=== PATIENT | female | born 1930 | race Caucasian/White ===

== ENCOUNTER → 2017-12-10 | Outpatient (CLI) | payer MEDICARE, MEDICAID ==
--- NOTE | 2017-12-11 06:44 | WOMENS IMAGING REPORT ---
EXAM DESCRIPTION: 3D SCREENING MAMMO BILAT COMPLETED DATE/TIME: 12/10/2017 1:57 pm REASON FOR STUDY: ROUTINE SCREENING; Z12.31 Z12.31 ENCNTR SCREEN MAMMOGRAM FOR MALIGNANT NEOPLASM O F GABRIELA COMPARISON: 03/14/2012 and 05/26/2009. TECHNIQUE: Standard craniocaudal and mediolateral oblique views of each breast recorded using digita l acquisition and breast tomosynthesis. LIMITATIONS: None. FINDINGS: Findings present which are benign by mammographic criteria. No suspicious masses, calcifi cations or architectural distortion. Pertinent benign findings: Stable calcifications, oval nodule in the right breast. Read with the assistance of CAD. .[facility] - R2 Cenova Version 1.3 .[facility] Imaging - R2 Cenova Version 1.3 .[facility] Imaging - R2 Cenova Version 2.4 .[facility] [place] Cenova Version 2.4 .[facility] - R2 Microbiology Lab Analyst Version 9.2 Benign mammographic findings may include one or more of the following: Smooth masses, popcorn/rim/co arse calcifications, asymmetries, post-procedure changes, and lesions with long-standing stability. IMPRESSION: BENIGN MAMMOGRAPHIC FINDINGS. BIRADS 2 BREAST DENSITY: b. There are scattered areas of fibroglandular density. BIRAD: 2 BENIGN FINDING(S) RECOMMENDATION: RECOMMENDATION: ROUTINE SCREENING COMMENT: The patient has been notified of the results by letter per SA requirements. Additional no tification policies are in place for contacting patient with suspicious or incomplete findings. Quality ID #[id number]: The [employer] recommends an annual screening mammogram for women aged 40 years or over. This facility utilizes a reminder system to ensure that all patients receive reminder letters, and/or direct phone calls for appointments. This includes reminders for routine scr eening mammograms, diagnostic mammograms, or other Breast Imaging Interventions when appropriate. Th is patient will be placed in the appropriate reminder system. The [employer] (ACR) has developed recommendations for screening MRI of the breast s in certain patient populations, to be used in conjunction with mammography. Breast MRI surveillanc e may be appropriate for women with more than 20% lifetime risk of developing breast cancer as deter mined by genetic testing, significant family history of the disease, or history of mantle radiation f or Hodgkins Disease. ACR Practice Guidelines 2008. DBT Technology DBT is a type of tomographic mammography. With conventional mammography, overlapping breast tissue ma y make lesions difficult to detect, even with good compression. DBT uses an x-ray tube that rotates a round the breast, taking images at different angles. These images are then combined to create thin sl ices of the breast that the radiologist can view as a 3D reconstruction. The FX Bridge unit can perform full-field digital mammograms (2D imaging); or DBT (3D imaging); or both, in a combination mode that quickly performs both the mammogram and the tomosynthesis scan while the breast is still compressed. PQRS 6045F: Fluoroscopic imaging is not utilized for breast tomosynthesis. TECHNICAL DOCUMENTATION: FINDING NUMBER: (1) ASSESSMENT: (1) JOB ID: [id number] [employer]- All Rights Reserved
== END ==
LOC: WI 13:45
PROVIDERS: ATTEND Obstetrics & Gynecology Gynecology
DX: Z12.31 Encounter for screening mammogram for malignant neoplasm of breast (principal)
CPT/HCPCS: 77063; 77067

== ENCOUNTER 2018-05-26 13:39 | Inpatient (IN) | payer MEDICARE, MEDICAID ==
[2018-05-26] MEDS ORDERED: OXYCODONE-ACETAMINOPHEN 5-325 MG TABLET PO ONE (14:03)
--- NOTE | 2018-05-26 14:07 | ER Document Report ---
ED Fall - General Chief Complaint: Fall Stated Complaint: FALL Time Seen by Provider: 05/26/18 14:03 Mode of Arrival: Ambulatory Information source: Patient Notes: Chief complaint: Left leg pain History of complain:( obtained from----patient) 87 years old female while walking said felt dizzy fell on the left knee and since then having pain over the medial side of the left knee and lower leg. She did not pass out. There is no loss of consciousness. Denies any head injury. He denies any headache neck pain neck stiffness. Denies any injury to upper limbs. Denies any injury to the thoracolumbar region. Denies any pain over the hipS, denies any pain over the ankles. Onset: As above Duration: Just prior to arrival Severity: Moderate Quality: Sharp Context: 4 Exacerbating factor and relieving factors: Any movement of the left leg REVIEW OF SYSTEMS: CONSTITUTIONAL : Denies fever, chills, or sweats. Denies recent illness. EENT: Denies eye, ear, throat, or mouth pain or symptoms. Denies nasal or sinus congestion or discharge. Denies throat, tongue, or mouth swelling or difficulty swallowing. CARDIOVASCULAR: Denies chest pain. Denies palpitations or racing or irregular heart beat. Denies ankle edema. RESPIRATORY: Denies cough, cold, or chest congestion. Denies shortness of breath, difficulty breathing, or wheezing. GASTROINTESTINAL: Denies distention. Denies nausea, vomiting, or diarrhea. Denies blood in vomitus, stools, or per rectum. Denies black, tarry stools. Denies constipation. GENITOURINARY: Denies difficulty urinating, painful urination, burning, frequency, blood in urine, or discharge. FEMALE GENITOURINARY: Denies vaginal bleeding, heavy or abnormal periods, irregular periods. Denies vaginal discharge or odor. MUSCULOSKELETAL: SKIN: Denies rash, lesions or sores. HEMATOLOGIC : Denies easy bruising or bleeding. LYMPHATIC: Denies swollen, enlarged glands. NEUROLOGICAL: Denies confusion or altered mental status. Denies passing out or loss of consciousness. Denies dizziness or lightheadedness. Denies headache. Denies weakness or paralysis or loss of use of either side. Denies problems with gait or speech. Denies sensory loss, numbness, or tingling. Denies seizures. PSYCHIATRIC: Denies anxiety or stress. Denies depression, suicidal ideation, or homicidal ideation. ALL OTHER SYSTEMS REVIEWED AND NEGATIVE. PHYSICAL EXAMINATION: GENERAL: Well-appearing, well-nourished and in no acute distress. HEAD: Atraumatic, normocephalic. EYES: Pupils equal round and reactive to light, extraocular movements intact, conjunctiva are normal. ENT: Nares patent, oropharynx clear without exudates. Moist mucous membranes. NECK: Normal range of motion, supple without lymphadenopathy LUNGS: Breath sounds clear to auscultation bilaterally and equal. No wheezes rales or rhonchi. HEART: Regular rate and rhythm without murmurs ABDOMEN: Soft, nontender, nondistended abdomen. No guarding, no rebound. No masses appreciated. Examination of genitals-deferred Musculoskeletal: Tenderness diffusely over the entire left leg up to the knee was noted. No swelling no erythema noted. The entire leg is shortened externally rotated. Tenderness over the left hip noted. NEUROLOGICAL: Cranial nerves grossly intact. Normal speech, normal gait. Normal sensory, motor exams PSYCH: Normal mood, normal affect. SKIN: Warm, Dry, normal turgor, no rashes or lesions noted. Dictation was performed using [employer] voice recognition software TRAVEL OUTSIDE OF THE [place] IN LAST 30 DAYS: No - HPI Notes: Dictated - Related data Allergies/Adverse Reactions: No Known Allergies Allergy (Verified 05/26/18 15:27) Past Medical History - General Information source: Patient - Social History Smoking Status: Former Smoker Chew tobacco use (# tins/day): No Frequency of alcohol use: None Drug Abuse: None Family History: Reviewed & Not Pertinent Patient has suicidal ideation: No Patient has homicidal ideation: No - Past Medical History Cardiac Medical History: Reports: Hx Hypercholesterolemia, Hx Hypertension Pulmonary Medical History: Denies: Hx Tuberculosis Renal/ Medical History: Denies: Hx Peritoneal Dialysis Review of Systems - Review of Systems Notes: Dictated Physical Exam - Vital signs Vitals: Temp Pulse Resp BP Pulse Ox 98.1 F 70 20 147/59 H 95 05/26/18 13:54 05/26/18 13:54 05/26/18 13:54 05/26/18 13:54 05/26/18 13:54 - Notes Notes: Dictated Course - Re-evaluation Re-evalutation: 05/26/18 15:39 Patient was admitted to the medical service after discussing with the orthopedic surgeon director of online education. - Vital Signs Vital signs: Temp Pulse Resp BP Pulse Ox 98.1 F 70 20 147/59 H 95 05/26/18 13:54 05/26/18 13:54 05/26/18 13:54 05/26/18 13:54 05/26/18 13:54 - Laboratory Result Diagrams: 05/26/18 14:32 05/26/18 14:32 Laboratory results interpreted by me: 05/26/18 05/26/18 14:32 14:32 MCH 26.4 L RDW 14.4 H BUN 24 H Est GFR ( Amer) 53 L Est GFR (Non-Af Amer) 44 L Glucose 266 H - Diagnostic Test Radiology reviewed: Image reviewed, Reports reviewed - Left knee reported by radiologist as no fractures Radiology results interpreted by me: 05/26/18 15:38 Left hip [id number] fracture - EKG Interpretation by Me EKG shows normal: Sinus rhythm - Sinus rhythm at the rate of 63 bpm normal axis no acute ST elevation ST depression T-wave inversion noted. Discharge - Discharge Clinical Impression: Dizziness Fracture, intertrochanteric, left femur Qualifiers: Encounter type: initial encounter Fracture type: closed Fracture alignment: nondisplaced Qualified Code(s): S72.145A - Nondisplaced intertrochanteric fracture of left femur, initial encounter for closed fracture Condition: Poor Disposition: ADMITTED INPATIENT Admitting Provider: Hospitalist Referrals: JONATHAN CARDOZA MD [Primary Care Provider] - Follow up as needed
--- NOTE | 2018-05-26 14:31 | RADIOLOGY REPORT (SQ) ---
EXAM DESCRIPTION: KNEE LEFT 4 VIEW COMPLETED DATE/TIME: 05/26/2018 2:22 pm REASON FOR STUDY: fall COMPARISON: None. NUMBER OF VIEWS: Five views. TECHNIQUE: AP, lateral, both oblique, and sunrise patella radiographic images acquired of the left k nee. LIMITATIONS: None. FINDINGS: MINERALIZATION: Osteopenia. BONES: No acute fracture or dislocation. No worrisome bone lesions. Osteophytes particularly of the lateral compartment. JOINT: No effusion. SOFT TISSUES: No soft tissue swelling. No radio-opaque foreign body. OTHER: No other significant finding. IMPRESSION: No acute fracture. TECHNICAL DOCUMENTATION: JOB ID: [id number] [employer]- All Rights Reserved Reading location - IP/workstation name: [email or web address]
[2018-05-26 14:40] LABS: ABSOLUTE BASOPHILS # (AUTO) 0.1 10^3/uL (0.0-0.2); ABSOLUTE EOSINOPHILS # (AUTO) 0.3 10^3/uL (0.0-0.6); ABSOLUTE LYMPHOCYTES (AUTO) 1.4 10^3/uL (0.5-4.7); ABSOLUTE MONOCYTES (AUTO) 0.5 10^3/uL (0.1-1.4); ABSOLUTE NEUT (AUTO) 5.4 10^3/uL (1.7-8.2); EOSINOPHILS % (AUTO) 3.6 % (0-6); HEMATOCRIT 37.1 % (36.0-47.0); HEMOGLOBIN 12.1 g/dL (12.0-15.5); LYMPHOCYTES % (AUTO) 18.7 % (13-45); MEAN CORPUSCULAR HEMOGLOBIN 26.4 pg (27.0-33.4); MEAN CORPUSCULAR HGB CONC 32.6 g/dL (32.0-36.0); MEAN CORPUSCULAR VOLUME 81 fl (80-97); MONOCYTES % (AUTO) 6.6 % (3-13); PLATELET COUNT 255 10^3/uL (150-450); RED BLOOD COUNT 4.59 10^6/uL (3.72-5.28); RED CELL DISTRIBUTION WIDTH 14.4 % (11.5-14.0); SEGMENTED NEUTROPHILS % (AUTO) 70.1 % (42-78); TOTAL CELLS COUNTED % (AUTO) 100 %; WHITE BLOOD COUNT 7.6 10^3/uL (4.0-10.5)
[2018-05-26 15:01] LABS: ALANINE AMINOTRANSFERASE 18 U/L (9-52); ALBUMIN 3.7 g/dL (3.5-5.0); ALKALINE PHOSPHATASE 77 U/L (38-126); ANION GAP 11 (5-19); ASPARTATE AMINO TRANSFERASE 21 U/L (14-36); BILIRUBIN,DIRECT 0.2 mg/dL (0.0-0.4); BILIRUBIN,TOTAL 0.3 mg/dL (0.2-1.3); BLOOD UREA NITROGEN 24 mg/dL (7-20); CALCIUM 8.7 mg/dL (8.4-10.2); CARBON DIOXIDE 25 mmol/L (22-30); CHLORIDE 104 mmol/L (98-107); GLUCOSE 266 mg/dL (75-110); POTASSIUM 4.6 mmol/L (3.6-5.0); SODIUM 140.2 mmol/L (137-145); TOTAL PROTEIN 7.6 g/dL (6.3-8.2)
[2018-05-26 15:36] LABS: APPEARANCE,URINE SLIGHTLY-CLOUDY; BILIRUBIN,URINE NEGATIVE (NEGATIVE); COLOR,URINE YELLOW; GLUCOSE, URINE NEGATIVE (NEGATIVE); KETONES,URINE NEGATIVE (NEGATIVE); LEUKOCYTE ESTERASE,URINE NEGATIVE (NEGATIVE); NITRITE,URINE NEGATIVE (NEGATIVE); PROTEIN,URINE NEGATIVE (NEGATIVE); URINE SPECIFIC GRAVITY 1.024
[2018-05-26] MEDS ORDERED: MORPHINE SULFATE 10 MG/ML INJ IV ONE (15:41)
[2018-05-26] MEDS ORDERED: ONDANSETRON 4 MG TAB.RAPDIS PO ONE (15:41)
--- NOTE | 2018-05-26 15:53 | RADIOLOGY REPORT (SQ) ---
EXAM DESCRIPTION: CHEST SINGLE VIEW COMPLETED DATE/TIME: 05/26/2018 3:45 pm REASON FOR STUDY: Preop COMPARISON: None. EXAM PARAMETERS: NUMBER OF VIEWS: One view. TECHNIQUE: Single frontal radiographic view of the chest acquired. RADIATION DOSE: NA LIMITATIONS: None. FINDINGS: LUNGS AND PLEURA: No opacities, masses or pneumothorax. No pleural effusion. MEDIASTINUM AND HILAR STRUCTURES: No masses. Contour normal. HEART AND VASCULAR STRUCTURES: Heart normal in size. Normal vasculature. BONES: No acute findings. HARDWARE: None in the chest. OTHER: No other significant finding. IMPRESSION: NO ACUTE RADIOGRAPHIC FINDING IN THE CHEST. TECHNICAL DOCUMENTATION: JOB ID: [id number] [employer]- All Rights Reserved Reading location - IP/workstation name: [email or web address]
--- NOTE | 2018-05-26 15:55 | RADIOLOGY REPORT (SQ) ---
EXAM DESCRIPTION: HIP LEFT AP/LATERAL COMPLETED DATE/TIME: 05/26/2018 3:45 pm REASON FOR STUDY: fall,injury COMPARISON: None. NUMBER OF VIEWS: Two views. TECHNIQUE: AP pelvis and additional frog-leg view of the left hip. LIMITATIONS: None. FINDINGS: MINERALIZATION: Osteopenia. LEFT HIP: Comminuted intertrochanteric fracture with superior migration of the femoral shaft. RIGHT HIP: No fracture or dislocation. No worrisome bone lesions. PUBIS AND ISCHIUM: Old inferior pubic ramus fracture. PELVIS: No fracture. SACRUM: No fracture or dislocation. No worrisome bone lesions. LOWER LUMBAR SPINE: No fracture or dislocation. No worrisome bone lesions. No significant disc disea se. SOFT TISSUES: No findings. OTHER: No other significant finding. IMPRESSION: Acute comminuted intertrochanteric fracture of the left femur. TECHNICAL DOCUMENTATION: JOB ID: [id number] [employer]- All Rights Reserved Reading location - IP/workstation name: [email or web address]
[2018-05-26] MEDS: NORMAL SALINE 1000 ML 1,000 ML IV PRN (16:12)
[2018-05-26] MEDS ORDERED: ONDANSETRON HCL INJ/PF 4 MG/2 ML SDV IV PRN (16:20)
--- NOTE | 2018-05-26 16:33 | PDOC H&P ---
History of Present Illness Admission Date/PCP: 05/26/18 15:57 JONATHAN CARDOZA MD History of Present Illness: DANIELLE VELA is a 87 year old female who is a resident of [facility] suffered a mechanical fall today and landed on her left knee. She was claiming to have pain in her upper thigh. She was brought to the emergency department and was found to have a left femur fracture. She has some degree of cognitive impairment making her somewhat unreliable as a historian, so a lot of the story is obtained from the medical record. Past Medical History Cardiac Medical History: Reports: Hyperlipidema, Hypertension Pulmonary Medical History: Denies: Tuberculosis Social History Information Source: [facility] Records Lives with: Other - Long-term care facility Smoking Status: Former Smoker Frequency of Alcohol Use: None Hx Recreational Drug Use: No Hx Prescription Drug Abuse: No Family History Family History: Reviewed & Not Pertinent Parental Family History Reviewed: Yes - Unable to obtain Children Family History Reviewed: Yes - Unable to obtain Sibling(s) Family History Reviewed.: Yes - Unable to obtain Medication/Allergy Home Medications: Acetaminophen [Mapap] 500 mg PO Q4HP PRN 05/26/18 Aspirin [Adult Low Dose Aspirin EC] 81 mg PO QAM 05/26/18 Cholecalciferol (Vitamin D3) [Vitamin D3 400 Unit Tablet] 400 unit PO QAM Guaifenesin [Tussin Mucus-Chest Congestion] 10 ml PO Q6HP PRN 05/26/18 Loperamide HCl [Loperamide] 2 mg PO PRN PRN 05/26/18 Magnesium Hydroxide [Milk of Magnesia 30 ml Udcup] 30 ml PO HSP PRN 05/26/18 Memantine HCl [Namenda 10 mg Tablet] 10 mg PO QAM 05/26/18 Metoprolol Succinate [Toprol Xl 50 mg Tab.sr] 50 mg PO QAM 05/26/18 Mintox Susp 30 ml PO PRN PRN 05/26/18 Pravastatin Sodium [Pravachol] 40 mg PO QHS 05/26/18 Allergies/Adverse Reactions: No Known Allergies Allergy (Verified 05/26/18 15:27) Review of Systems ROS unobtainable: Due to mental status Physical Exam Vital Signs: Temp Pulse Resp BP Pulse Ox 98.1 F 70 20 191/64 H 96 05/26/18 13:54 07/29/18 13:54 05/26/18 16:03 05/26/18 16:03 05/26/18 16:03 General appearance: PRESENT: no acute distress, cooperative, disheveled, obese Head exam: PRESENT: atraumatic, normocephalic Eye exam: PRESENT: conjunctiva pink, EOMI, PERRLA. ABSENT: scleral icterus Ear exam: PRESENT: normal external ear exam Mouth exam: PRESENT: moist, neck supple Teeth exam: PRESENT: poor dentation Throat exam: ABSENT: post pharyngeal erythema, tonsillar erythema, tonsillar exudate, tonsillogmegaly Neck exam: PRESENT: full ROM. ABSENT: carotid bruit, JVD, lymphadenopathy, tenderness Respiratory exam: PRESENT: clear to auscultation michael, unlabored. ABSENT: accessory muscle use, rales, rhonchi, tachypnea, wheezes Cardiovascular exam: PRESENT: RRR, +S1, +S2. ABSENT: diastolic murmur, systolic murmur Pulses: PRESENT: normal radial pulses, normal dorsalis pedis pul Vascular exam: PRESENT: normal capillary refill GI/Abdominal exam: PRESENT: normal bowel sounds, soft. ABSENT: distended, guarding, rebound, tenderness Extremities exam: ABSENT: calf tenderness, clubbing, pedal edema Musculoskeletal exam: PRESENT: deformity - Left leg is externally rotated, tenderness - Left hip is tender to palpation Neurological exam: PRESENT: alert, awake, oriented to person, CN II-XII grossly intact. ABSENT: oriented to place, oriented to time Skin exam: PRESENT: dry, warm Results Laboratory Results: Reviewed Impressions: Knee X-Ray 05/26/18 13:56 IMPRESSION: No acute fracture. Hip X-Ray 05/26/18 15:02 IMPRESSION: Acute comminuted intertrochanteric fracture of the left femur. Chest X-Ray 05/26/18 15:26 IMPRESSION: NO ACUTE RADIOGRAPHIC FINDING IN THE CHEST. Assessment & Plan - Diagnosis (1) Fracture, intertrochanteric, left femur Qualifiers: Encounter type: initial encounter Fracture type: closed Fracture alignment: nondisplaced Qualified Code(s): S72.145A - Nondisplaced intertrochanteric fracture of left femur, initial encounter for closed fracture Is this a current diagnosis for this admission?: Yes Plan: Pain control. Orthopedics consult, she will likely need surgery for repair. Plan for postoperative DVT prophylaxis and physical therapy. - Time Time Spent: 50 to 70 Minutes
--- NOTE | 2018-05-26 18:30 | EKG REPORT ---
SEVERITY:- NORMAL ECG - SINUS RHYTHM : Confirmed by: Sarahi Ochoa MD 26-May-2018 18:30:02
[2018-05-26] MEDS: ATORVASTATIN CALCIUM 10 MG TABLET PO SCH (22:32)
[2018-05-26] MEDS: OXYCODONE-ACETAMINOPHEN 5-325 MG TABLET PO PRN (22:32)
[2018-05-27 05:36] LABS: HEMATOCRIT 31.7 % (36.0-47.0); HEMOGLOBIN 10.6 g/dL (12.0-15.5); MEAN CORPUSCULAR HEMOGLOBIN 27.2 pg (27.0-33.4); MEAN CORPUSCULAR HGB CONC 33.5 g/dL (32.0-36.0); MEAN CORPUSCULAR VOLUME 81 fl (80-97); PLATELET COUNT 204 10^3/uL (150-450); RED CELL DISTRIBUTION WIDTH 14.2 % (11.5-14.0); WHITE BLOOD COUNT 9.2 10^3/uL (4.0-10.5)
[2018-05-27] MEDS: OXYCODONE-ACETAMINOPHEN 5-325 MG TABLET PO PRN (05:49)
[2018-05-27] MEDS: NORMAL SALINE 1000 ML 1,000 ML IV PRN (05:50)
[2018-05-27 05:54] LABS: ANION GAP 10 (5-19); BLOOD UREA NITROGEN 26 mg/dL (7-20); CALCIUM 8.7 mg/dL (8.4-10.2); CARBON DIOXIDE 24 mmol/L (22-30); CHLORIDE 106 mmol/L (98-107); GLUCOSE 111 mg/dL (75-110); SODIUM 140.3 mmol/L (137-145)
[2018-05-27] MEDS ORDERED: RINGERS SOLUTION,LACTATED 1,000 ML IV PRN ×2 (06:42→13:38)
[2018-05-27] MEDS ORDERED: CEFAZOLIN 2 GM/D5W RTU 2 GM/50 ML RTUPB IV PRN (06:42)
--- NOTE | 2018-05-27 06:51 | PDOC CONSULTATION ---
Consultation Consult Date: 05/27/18 Consult reason:: Left hip pain History of Present Illness Admission Date/PCP: 05/26/18 15:57 JONATHAN CARDOZA MD History of Present Illness: DANIELLE VELA is a 87 year old female The patient is an 87-year-old white female resident of [facility] with a minimal past medical history who presents status post a fall with inability to weight-bear. She was brought to the emergency room where a left intratrochanteric femur fracture was identified. Patient is admitted to the hospital service and orthopedics consulted for fracture management. Past Medical History Cardiac Medical History: Reports: Hyperlipidema, Hypertension Pulmonary Medical History: Denies: Tuberculosis Psychiatric Medical History: Denies: Depression Past Surgical History Past Surgical History: Reports: None Social History Information Source: Patient, [facility] Records Lives with: Other - Long-term care facility Smoking Status: Former Smoker Frequency of Alcohol Use: None Hx Recreational Drug Use: No Drugs: None Hx Prescription Drug Abuse: No Family History Family History: Reviewed & Not Pertinent Parental Family History Reviewed: No Children Family History Reviewed: No Sibling(s) Family History Reviewed.: No Medication/Allergy Home Medications: Acetaminophen [Mapap] 500 mg PO Q4HP PRN 05/26/18 Aspirin [Adult Low Dose Aspirin EC] 81 mg PO QAM 05/26/18 Cholecalciferol (Vitamin D3) [Vitamin D3 400 Unit Tablet] 400 unit PO QAM Guaifenesin [Tussin Mucus-Chest Congestion] 10 ml PO Q6HP PRN 05/26/18 Loperamide HCl [Loperamide] 2 mg PO PRN PRN 05/26/18 Magnesium Hydroxide [Milk of Magnesia 30 ml Udcup] 30 ml PO HSP PRN 05/26/18 Memantine HCl [Namenda 10 mg Tablet] 10 mg PO QAM 05/26/18 Metoprolol Succinate [Toprol Xl 50 mg Tab.sr] 50 mg PO QAM 05/26/18 Mintox Susp 30 ml PO PRN PRN 05/26/18 Pravastatin Sodium [Pravachol] 40 mg PO QHS 05/26/18 Allergies/Adverse Reactions: No Known Allergies Allergy (Verified 05/26/18 15:27) Review of Systems ROS unobtainable: Due to mental status All systems: as per PMH Physical Exam Vital Signs: Temp Pulse Resp BP Pulse Ox 36.5 C 72 12 112/83 94 05/26/18 23:11 05/26/18 23:11 05/26/18 23:11 05/26/18 23:11 05/26/18 23:11 Intake & Output 05/25/18 05/26/18 05/27/18 06:59 06:59 06:59 Intake Total 1236 Output Total 300 Balance 936 Weight 81.1 kg Physical Exam: Patient is an alert elderly white female sitting up in a hospital bed. She is complaining about left thigh pain. Left lower extremities elevated on pillows. General appearance: PRESENT: mild distress Head exam: PRESENT: normocephalic Respiratory exam: PRESENT: unlabored Cardiovascular exam: PRESENT: RRR Pulses: PRESENT: +1 pedal pulses bilateral Vascular exam: PRESENT: normal capillary refill GI/Abdominal exam: PRESENT: soft Rectal exam: PRESENT: deferred Extremities exam: PRESENT: other - Left lower extremity supported on pillows. Pain associated with motion. Leg length discrepancy present. Rotational deformity. Neurological exam: PRESENT: alert Skin exam: PRESENT: dry, intact, warm. ABSENT: cyanosis, rash Results Laboratory Results: 05/27/18 04:45 05/27/18 04:45 05/27/18 05/27/18 04:45 04:45 WBC 9.2 RBC 3.90 Hgb 10.6 L Hct 31.7 L MCV 81 MCH 27.2 MCHC 33.5 RDW 14.2 H Plt Count 204 Sodium 140.3 Potassium 5.0 Chloride 106 Carbon Dioxide 24 Anion Gap 10 BUN 26 H Creatinine 1.06 Est GFR ( Amer) 59 L Est GFR (Non-Af Amer) 49 L Glucose 111 H Calcium 8.7 Impressions: Knee X-Ray 05/26/18 13:56 IMPRESSION: No acute fracture. Hip X-Ray 05/26/18 15:02 IMPRESSION: Acute comminuted intertrochanteric fracture of the left femur. Chest X-Ray 05/26/18 15:26 IMPRESSION: NO ACUTE RADIOGRAPHIC FINDING IN THE CHEST. Status: Imported from PACS Assessment & Plan - Diagnosis (1) Fracture, intertrochanteric, left femur Qualifiers: Encounter type: initial encounter Fracture type: closed Fracture alignment: nondisplaced Qualified Code(s): S72.145A - Nondisplaced intertrochanteric fracture of left femur, initial encounter for closed fracture Is this a current diagnosis for this admission?: Yes Plan: 87-year-old white female largely household ambulator status post a fall now with a left intratrochanteric femur fracture. Patient be best served with an open reduction internal fixation of the fracture. This is been placed on the OR schedule today pending medical clearance, or availability, and obtaining appropriate consent. Anticipate the procedure will last approximately 30 minutes with 100 cc of blood loss. Patient be weightbearing as tolerated immediately postop. - Time Time Spent: 50 to 70 Minutes Anticipated discharge: SNF Within: Other
[2018-05-27] MEDS ORDERED: PROPOFOL INJ 200 MG/20 ML VIAL IV ONE (11:05)
[2018-05-27] MEDS ORDERED: FENTANYL CITRATE INJ/PF 100 MCG/2 ML AMPUL ONE (11:05)
[2018-05-27] MEDS ORDERED: ACETAMINOPHEN 0 MG/0 ML RTUPB IV ONE (11:05)
[2018-05-27] MEDS ORDERED: BUPIVACAINE HCL/DEX-WATER/PF 15 MG/2 ML AMPULE ONE (11:07)
[2018-05-27] MEDS ORDERED: CEFAZOLIN INJ 1 GM VIAL ONE (11:28)
[2018-05-27] MEDS ORDERED: MORPHINE SULFATE 10 MG/ML INJ IV PRN (12:24)
[2018-05-27] MEDS ORDERED: PROMETHAZINE HCL INJ 25 MG/1 ML VIAL IV PRN ×2 (12:24)
[2018-05-27] MEDS ORDERED: OXYCODONE-ACETAMINOPHEN 5-325 MG TABLET PO PRN ×2 (12:24)
[2018-05-27] MEDS ORDERED: DIPHENHYDRAMINE HCL 50 MG/ML VIAL IV PRN (12:24)
[2018-05-27] MEDS ORDERED: FENTANYL CITRATE INJ/PF 100 MCG/2 ML AMPUL IV PRN ×3 (12:24)
[2018-05-27] MEDS ORDERED: MEPERIDINE HCL/PF INJ 25 MG/1 ML DISP.SYRIN IV PRN (12:24)
--- NOTE | 2018-05-27 12:27 | Operative Report ---
Operative Report DATE OF SURGERY: 05/27/18 PREOPERATIVE DIAGNOSIS: Left intratrochanteric femur fracture OPERATION: Open reduction internal fixation left intratrochanteric femur fracture SURGEON: SHANTI RINCON ANESTHESIA: GA ESTIMATED BLOOD LOSS: 100 PROCEDURE: With the patient supine on the fracture table left lower extremities manipulated and fluoroscopic guidance to affected near anatomic reduction. Subsequently the lower extremity hindquarter prepped and draped in sterile fashion. The pin is placed percutaneously down through the greater trochanter into the proximal metadiaphysis of the femur. A combined reamers used to fashion a cortical opening. These are removed and a ball-tipped guide rods placed down the femur. Femoral depth is measured to be 360 mm. Subsequently a Radhika gamma 3 femoral nail 360 mm x 11 mm x 125 is advanced over the ball- tipped guide trinh for an appropriate depth for proximal interlock. A 100 mm proximal interlock is placed. A 55 mm distal interlock is placed. The wounds irrigated. Wounds are closed using interrupted Vicryl followed by jake. Sterile compressive dressings applied and the patient's return to PACU in satisfactory condition.
[2018-05-27] MEDS ORDERED: EPHEDRINE SULFATE INJ 50 MG/1 ML AMPULE ONE (12:44)
--- NOTE | 2018-05-27 13:47 | RADIOLOGY REPORT (SQ) ---
EXAM DESCRIPTION: NO CHG FLUORO; HIP IN OPERATING RM COMPLETED DATE/TIME: 05/27/2018 1:21 pm REASON FOR STUDY: ORIF/ IM NAILING LEFT HIP IN OR COMPARISON: 05/26/2018. FLUOROSCOPY TIME: 0.7 minutes. 4 images saved to PACS. TECHNIQUE: Intra-operative images acquired during surgical procedure to evaluate progress. NUMBER OF IMAGES: 4 images. LIMITATIONS: None. FINDINGS: Surgical fixation of the left hip fracture with placement of hardware. IMPRESSION: IMAGE(S) OBTAINED DURING PROCEDURE. COMMENT: Quality ID [id number]: Final reports for procedures using fluoroscopy that document radiation exp osure indices, or exposure time and number of fluorographic images (if radiation exposure indices are not available) Please consult full operative report of the attending physician for description of the procedure. TECHNICAL DOCUMENTATION: JOB ID: [id number] [employer]- All Rights Reserved Reading location - IP/workstation name: [email or web address]
--- NOTE | 2018-05-27 13:47 | RADIOLOGY REPORT (SQ) ---
EXAM DESCRIPTION: NO CHG FLUORO; HIP IN OPERATING RM COMPLETED DATE/TIME: 05/27/2018 1:21 pm REASON FOR STUDY: ORIF/ IM NAILING LEFT HIP IN OR COMPARISON: 05/26/2018. FLUOROSCOPY TIME: 0.7 minutes. 4 images saved to PACS. TECHNIQUE: Intra-operative images acquired during surgical procedure to evaluate progress. NUMBER OF IMAGES: 4 images. LIMITATIONS: None. FINDINGS: Surgical fixation of the left hip fracture with placement of hardware. IMPRESSION: IMAGE(S) OBTAINED DURING PROCEDURE. COMMENT: Quality ID [id number]: Final reports for procedures using fluoroscopy that document radiation exp osure indices, or exposure time and number of fluorographic images (if radiation exposure indices are not available) Please consult full operative report of the attending physician for description of the procedure. TECHNICAL DOCUMENTATION: JOB ID: [id number] [employer]- All Rights Reserved Reading location - IP/workstation name: [email or web address]
--- NOTE | 2018-05-27 15:17 | PDOC PROGRESS REPORT ---
Subjective Progress Note for:: 05/27/18 Subjective:: No adverse events overnight. No new complaints. Vital signs have remained stable. Her pain has been well controlled as long as she is at rest. She is n.p.o. today awaiting her procedure. Reason For Visit: LEFT COMMINUTED INTERTROCHANTERIC FEMUR FRACTURE Physical Exam Vital Signs: Temp Pulse Resp BP Pulse Ox 97.9 F 75 16 119/50 L 97 05/27/18 13:21 05/27/18 13:21 05/27/18 13:21 05/27/18 13:21 05/27/18 13:21 Intake & Output 05/26/18 05/27/18 05/28/18 06:59 06:59 06:59 Intake Total 1236 700 Output Total 300 300 Balance 936 400 Weight 81.1 kg General appearance: PRESENT: no acute distress, cooperative, disheveled, obese Respiratory exam: PRESENT: clear to auscultation michael, unlabored. ABSENT: accessory muscle use, rales, rhonchi, tachypnea, wheezes Cardiovascular exam: PRESENT: RRR, +S1, +S2. ABSENT: diastolic murmur, systolic murmur Pulses: PRESENT: normal radial pulses, normal dorsalis pedis pul Vascular exam: PRESENT: normal capillary refill GI/Abdominal exam: PRESENT: normal bowel sounds, soft. ABSENT: distended, guarding, rebound, tenderness Extremities exam: ABSENT: calf tenderness, clubbing, pedal edema Musculoskeletal exam: PRESENT: deformity - Left leg is externally rotated, tenderness - Left hip is tender to palpation Neurological exam: PRESENT: alert, awake, oriented to person. ABSENT: oriented to place, oriented to time Skin exam: PRESENT: dry, warm Results Laboratory Results: 05/27/18 04:45 05/27/18 04:45 05/27/18 05/27/18 04:45 04:45 WBC 9.2 RBC 3.90 Hgb 10.6 L Hct 31.7 L MCV 81 MCH 27.2 MCHC 33.5 RDW 14.2 H Plt Count 204 Sodium 140.3 Potassium 5.0 Chloride 106 Carbon Dioxide 24 Anion Gap 10 BUN 26 H Creatinine 1.06 Est GFR ( Amer) 59 L Est GFR (Non-Af Amer) 49 L Glucose 111 H Calcium 8.7 Impressions: Knee X-Ray 05/26/18 13:56 IMPRESSION: No acute fracture. Chest X-Ray 05/26/18 15:26 IMPRESSION: NO ACUTE RADIOGRAPHIC FINDING IN THE CHEST. Fluoroscopy 05/27/18 00:00 IMPRESSION: IMAGE(S) OBTAINED DURING PROCEDURE. Hip X-Ray 05/27/18 00:00 IMPRESSION: IMAGE(S) OBTAINED DURING PROCEDURE. Assessment & Plan - Diagnosis (1) Fracture, intertrochanteric, left femur Qualifiers: Encounter type: initial encounter Fracture type: closed Fracture alignment: nondisplaced Qualified Code(s): S72.145A - Nondisplaced intertrochanteric fracture of left femur, initial encounter for closed fracture Is this a current diagnosis for this admission?: Yes Plan: Pain control. She is on the schedule for the OR today. Plan for postoperative DVT prophylaxis and physical therapy. - Time Time Spent with patient: 15-24 minutes
[2018-05-27] MEDS: MORPHINE SULFATE 10 MG/ML INJ IV PRN (15:45)
[2018-05-27] MEDS: ASPIRIN 81 MG TABLET, ENT COATED PO SCH (17:52)
[2018-05-27] MEDS: METOPROLOL SUCCINATE 50 MG TAB.SR.24H PO SCH (17:53)
[2018-05-27] MEDS: MEMANTINE HCL 10 MG TABLET PO SCH (17:53)
[2018-05-27] MEDS ORDERED: TRAMADOL HCL 50 MG TABLET PO PRN (18:00)
[2018-05-27] MEDS: CEFAZOLIN 2 GM/D5W RTU 2 GM/50 ML RTUPB IV SCH (18:30)
[2018-05-27] MEDS: ATORVASTATIN CALCIUM 10 MG TABLET PO SCH (23:00)
[2018-05-28] MEDS: CEFAZOLIN 2 GM/D5W RTU 2 GM/50 ML RTUPB IV SCH (03:25)
[2018-05-28] MEDS: OXYCODONE-ACETAMINOPHEN 5-325 MG TABLET PO PRN ×2 (03:25→13:19)
--- NOTE | 2018-05-28 06:28 | PDOC PROGRESS REPORT ---
Subjective Progress Note for:: 05/28/18 Reason For Visit: LEFT COMMINUTED INTERTROCHANTERIC FEMUR FRACTURE Postop day 1 status post open reduction internal fixation of left proximal femur fracture. Patient denies any significant pain Physical Exam Vital Signs: Temp Pulse Resp BP Pulse Ox 36.6 C 87 18 151/54 H 98 05/28/18 03:32 05/28/18 03:32 05/27/18 19:27 05/28/18 03:32 05/28/18 03:32 Intake & Output 05/26/18 05/27/18 05/28/18 06:59 06:59 06:59 Intake Total 1236 2000 Output Total 300 1225 Balance 936 775 Weight 81.1 kg 81.9 kg General appearance: PRESENT: no acute distress Head exam: PRESENT: normocephalic Respiratory exam: PRESENT: unlabored Cardiovascular exam: PRESENT: RRR Pulses: PRESENT: +1 pedal pulses bilateral Vascular exam: PRESENT: normal capillary refill Extremities exam: PRESENT: other - Left hip dressings clean dry and intact. Leg lengths are equal. Distal neurovascular examination is intact. Skin exam: PRESENT: dry, intact, warm. ABSENT: cyanosis, rash Results Laboratory Results: 05/27/18 04:45 05/27/18 04:45 Impressions: Knee X-Ray 05/26/18 13:56 IMPRESSION: No acute fracture. Chest X-Ray 05/26/18 15:26 IMPRESSION: NO ACUTE RADIOGRAPHIC FINDING IN THE CHEST. Fluoroscopy 05/27/18 00:00 IMPRESSION: IMAGE(S) OBTAINED DURING PROCEDURE. Hip X-Ray 05/27/18 00:00 IMPRESSION: IMAGE(S) OBTAINED DURING PROCEDURE. Status: Imported from PACS Assessment & Plan - Diagnosis (1) Fracture, intertrochanteric, left femur Qualifiers: Encounter type: initial encounter Fracture type: closed Fracture alignment: nondisplaced Qualified Code(s): S72.145A - Nondisplaced intertrochanteric fracture of left femur, initial encounter for closed fracture Is this a current diagnosis for this admission?: Yes Plan: Status post ORIF of left hip fracture. Plan for physical therapy and weightbearing as tolerated basis. Anticipate the need for shelter facility placement.
[2018-05-28 06:39] LABS: HEMATOCRIT 27.7 % (36.0-47.0); HEMOGLOBIN 9.2 g/dL (12.0-15.5); MEAN CORPUSCULAR HEMOGLOBIN 27.1 pg (27.0-33.4); MEAN CORPUSCULAR HGB CONC 33.4 g/dL (32.0-36.0); MEAN CORPUSCULAR VOLUME 81 fl (80-97); PLATELET COUNT 147 10^3/uL (150-450); RED BLOOD COUNT 3.41 10^6/uL (3.72-5.28); WHITE BLOOD COUNT 10.9 10^3/uL (4.0-10.5)
[2018-05-28 06:57] LABS: ANION GAP 9 (5-19); BLOOD UREA NITROGEN 19 mg/dL (7-20); CALCIUM 8.2 mg/dL (8.4-10.2); CARBON DIOXIDE 24 mmol/L (22-30); CHLORIDE 105 mmol/L (98-107); GLUCOSE 138 mg/dL (75-110); POTASSIUM 4.7 mmol/L (3.6-5.0)
[2018-05-28] MEDS: ASPIRIN 81 MG TABLET, ENT COATED PO SCH (08:39)
[2018-05-28] MEDS: METOPROLOL SUCCINATE 50 MG TAB.SR.24H PO SCH (08:39)
[2018-05-28] MEDS: MEMANTINE HCL 10 MG TABLET PO SCH (08:39)
--- NOTE | 2018-05-28 16:38 | PDOC PROGRESS REPORT ---
Subjective Progress Note for:: 05/28/18 Subjective:: Ms. Sun was admitted for left femoral fracture. She is status post ORIF postop day 1. No acute event overnight. Postop pain is well controlled. Reason For Visit: LEFT COMMINUTED INTERTROCHANTERIC FEMUR FRACTURE Physical Exam Vital Signs: Temp Pulse Resp BP Pulse Ox 98.5 F 77 18 136/51 H 99 05/28/18 15:16 05/28/18 15:16 05/28/18 15:16 05/28/18 15:16 05/28/18 15:16 Intake & Output 05/27/18 05/28/18 05/29/18 06:59 06:59 06:59 Intake Total 1236 2000 1405 Output Total 300 1225 450 Balance 936 775 955 Weight 178 lb 12.718 oz 180 lb 8.937 oz General appearance: PRESENT: no acute distress, well-developed, well-nourished Head exam: PRESENT: atraumatic, normocephalic Neck exam: ABSENT: carotid bruit, JVD, lymphadenopathy, thyromegaly Respiratory exam: PRESENT: clear to auscultation michael. ABSENT: rales, rhonchi, wheezes Cardiovascular exam: PRESENT: RRR. ABSENT: diastolic murmur, rubs, systolic murmur Pulses: PRESENT: normal dorsalis pedis pul GI/Abdominal exam: PRESENT: normal bowel sounds, soft. ABSENT: distended, guarding, mass, organolmegaly, rebound, tenderness Rectal exam: PRESENT: deferred Extremities exam: PRESENT: other - No tenderness on site of surgery Neurological exam: PRESENT: alert, oriented to person, oriented to place, oriented to time Results Laboratory Results: 05/28/18 05:24 05/28/18 05:24 05/28/18 05/28/18 05:24 05:24 WBC 10.9 H RBC 3.41 L Hgb 9.2 L Hct 27.7 L MCV 81 MCH 27.1 MCHC 33.4 RDW 14.0 Plt Count 147 L Sodium 138.0 Potassium 4.7 Chloride 105 Carbon Dioxide 24 Anion Gap 9 BUN 19 Creatinine 1.02 Est GFR ( Amer) > 60 Est GFR (Non-Af Amer) 51 L Glucose 138 H Calcium 8.2 L Impressions: Knee X-Ray 05/26/18 13:56 IMPRESSION: No acute fracture. Chest X-Ray 05/26/18 15:26 IMPRESSION: NO ACUTE RADIOGRAPHIC FINDING IN THE CHEST. Fluoroscopy 05/27/18 00:00 IMPRESSION: IMAGE(S) OBTAINED DURING PROCEDURE. Hip X-Ray 05/27/18 00:00 IMPRESSION: IMAGE(S) OBTAINED DURING PROCEDURE. Assessment & Plan - Diagnosis (1) Fracture, intertrochanteric, left femur Qualifiers: Encounter type: initial encounter Fracture type: closed Is this a current diagnosis for this admission?: Yes Plan: Patient is status post ORIF, POD 1. Continue current pain regimen. Will follow -up on further ortho recommendations. Patient has been evaluated by PT recommendation for SNF versus rehab placement. - Time Time Spent with patient: 15-24 minutes
[2018-05-29] MEDS: ATORVASTATIN CALCIUM 10 MG TABLET PO SCH ×2 (00:54→21:00)
[2018-05-29] MEDS: OXYCODONE-ACETAMINOPHEN 5-325 MG TABLET PO PRN ×2 (00:54→15:08)
[2018-05-29 05:28] LABS: HEMATOCRIT 25.4 % (36.0-47.0); HEMOGLOBIN 8.5 g/dL (12.0-15.5); MEAN CORPUSCULAR HEMOGLOBIN 26.6 pg (27.0-33.4); MEAN CORPUSCULAR HGB CONC 33.4 g/dL (32.0-36.0); MEAN CORPUSCULAR VOLUME 80 fl (80-97); PLATELET COUNT 157 10^3/uL (150-450); WHITE BLOOD COUNT 10.4 10^3/uL (4.0-10.5)
[2018-05-29 05:49] LABS: ANION GAP 13 (5-19); BLOOD UREA NITROGEN 20 mg/dL (7-20); CALCIUM 8.4 mg/dL (8.4-10.2); CARBON DIOXIDE 22 mmol/L (22-30); CHLORIDE 104 mmol/L (98-107); GLUCOSE 124 mg/dL (75-110); POTASSIUM 4.7 mmol/L (3.6-5.0); SODIUM 138.5 mmol/L (137-145)
[2018-05-29] MEDS: METOPROLOL SUCCINATE 50 MG TAB.SR.24H PO SCH (08:07)
[2018-05-29] MEDS: MEMANTINE HCL 10 MG TABLET PO SCH (08:07)
[2018-05-29] MEDS: ASPIRIN 81 MG TABLET, ENT COATED PO SCH (08:07)
--- NOTE | 2018-05-29 15:17 | PDOC PROGRESS REPORT ---
Subjective Progress Note for:: 05/29/18 Subjective:: Ms. Sun was admitted for left femoral fracture. She is status post ORIF postop day 2. No acute event overnight. Postop pain is well controlled. Reason For Visit: LEFT COMMINUTED INTERTROCHANTERIC FEMUR FRACTURE Physical Exam Vital Signs: Temp Pulse Resp BP Pulse Ox 97.7 F 86 18 123/52 L 91 L 05/29/18 11:00 05/29/18 11:00 05/29/18 11:00 05/29/18 11:00 05/29/18 11:00 Intake & Output 05/28/18 05/29/18 05/30/18 06:59 06:59 06:59 Intake Total 2000 1405 Output Total 1225 450 Balance 775 955 Weight 180 lb 8.937 oz 180 lb 15.992 oz General appearance: PRESENT: no acute distress, well-developed, well-nourished Head exam: PRESENT: atraumatic, normocephalic Neck exam: ABSENT: carotid bruit, JVD, lymphadenopathy, thyromegaly Respiratory exam: PRESENT: clear to auscultation michael. ABSENT: rales, rhonchi, wheezes Cardiovascular exam: PRESENT: RRR. ABSENT: diastolic murmur, rubs, systolic murmur Pulses: PRESENT: normal dorsalis pedis pul Vascular exam: PRESENT: normal capillary refill GI/Abdominal exam: PRESENT: normal bowel sounds, soft. ABSENT: distended, guarding, mass, organolmegaly, rebound, tenderness Rectal exam: PRESENT: deferred Extremities exam: PRESENT: full ROM. ABSENT: calf tenderness, clubbing, pedal edema Musculoskeletal exam: PRESENT: normal inspection, tenderness, other - Surgical site on the left hip looks clean with no signs of infection. Neurological exam: PRESENT: alert, awake, oriented to person, oriented to place , oriented to time, oriented to situation, CN II-XII grossly intact. ABSENT: motor sensory deficit Psychiatric exam: PRESENT: appropriate affect, normal mood. ABSENT: homicidal ideation, suicidal ideation Results Laboratory Results: 05/29/18 04:54 05/29/18 04:54 05/29/18 05/29/18 04:54 04:54 WBC 10.4 RBC 3.20 L Hgb 8.5 L Hct 25.4 L MCV 80 MCH 26.6 L MCHC 33.4 RDW 14.0 Plt Count 157 Sodium 138.5 Potassium 4.7 Chloride 104 Carbon Dioxide 22 Anion Gap 13 BUN 20 Creatinine 0.84 Est GFR ( Amer) > 60 Est GFR (Non-Af Amer) > 60 Glucose 124 H Calcium 8.4 Impressions: Knee X-Ray 05/26/18 13:56 IMPRESSION: No acute fracture. Chest X-Ray 05/26/18 15:26 IMPRESSION: NO ACUTE RADIOGRAPHIC FINDING IN THE CHEST. Fluoroscopy 05/27/18 00:00 IMPRESSION: IMAGE(S) OBTAINED DURING PROCEDURE. Hip X-Ray 05/27/18 00:00 IMPRESSION: IMAGE(S) OBTAINED DURING PROCEDURE. Assessment & Plan - Diagnosis (1) Fracture, intertrochanteric, left femur Qualifiers: Encounter type: initial encounter Fracture type: closed Is this a current diagnosis for this admission?: Yes Plan: Patient is status post ORIF, POD 2. Continue current pain regimen. Continue weightbearing as tolerated with PT assistance. Patient will be discharged to rehab in 2 days. On aspirin for DVT prophylaxis per orthopedic service.
--- NOTE | 2018-05-30 06:34 | PDOC PROGRESS REPORT ---
Subjective Progress Note for:: 05/30/18 Reason For Visit: LEFT COMMINUTED INTERTROCHANTERIC FEMUR FRACTURE 87-year-old white female postop day 3 status post ORIF of a left intratrochanteric femur fracture Physical Exam Vital Signs: Temp Pulse Resp BP Pulse Ox 36.7 C 83 16 146/54 H 98 05/30/18 00:24 05/30/18 00:24 05/30/18 00:24 05/30/18 00:24 05/30/18 00:24 Intake & Output 05/28/18 05/29/18 05/30/18 06:59 06:59 06:59 Intake Total 1999 1405 1132 Output Total 1225 450 Balance 416 570 9572 Weight 81.9 kg 82.1 kg 81.5 kg General appearance: PRESENT: no acute distress, disheveled, mild distress Head exam: PRESENT: normocephalic Respiratory exam: PRESENT: unlabored Cardiovascular exam: PRESENT: RRR Pulses: PRESENT: +1 pedal pulses bilateral Vascular exam: PRESENT: normal capillary refill GI/Abdominal exam: PRESENT: soft Rectal exam: PRESENT: deferred Extremities exam: PRESENT: other - Left lower extremity dressings clean dry and intact. Leg lengths are equal. Distal neurovascular examination is intact. Skin exam: PRESENT: dry, intact, warm. ABSENT: cyanosis, rash Results Laboratory Results: 05/29/18 04:54 05/29/18 04:54 Impressions: Knee X-Ray 05/26/18 13:56 IMPRESSION: No acute fracture. Chest X-Ray 05/26/18 15:26 IMPRESSION: NO ACUTE RADIOGRAPHIC FINDING IN THE CHEST. Fluoroscopy 05/27/18 00:00 IMPRESSION: IMAGE(S) OBTAINED DURING PROCEDURE. Hip X-Ray 05/27/18 00:00 IMPRESSION: IMAGE(S) OBTAINED DURING PROCEDURE. Assessment & Plan - Diagnosis (1) Fracture, intertrochanteric, left femur Qualifiers: Encounter type: initial encounter Fracture type: closed Is this a current diagnosis for this admission?: Yes Plan: Patient be immobilized on a weightbearing as tolerated basis. Awaiting fdc facility placement. - Time Time Spent with patient: 15-24 minutes Anticipated discharge: SNF Within: when bed available
[2018-05-30] MEDS: ASPIRIN 81 MG TABLET, ENT COATED PO SCH (08:19)
[2018-05-30] MEDS: MEMANTINE HCL 10 MG TABLET PO SCH (08:19)
[2018-05-30] MEDS: METOPROLOL SUCCINATE 50 MG TAB.SR.24H PO SCH (08:19)
[2018-05-30] MEDS: OXYCODONE-ACETAMINOPHEN 5-325 MG TABLET PO PRN ×2 (12:51→21:05)
[2018-05-30] MEDS: MAG HYDROX/AL HYDROX/SIMETH SUSP 30 ML UDCUP PO PRN (12:53)
--- NOTE | 2018-05-30 19:27 | PDOC PROGRESS REPORT ---
Subjective Progress Note for:: 05/30/18 Subjective:: Ms. Sun was admitted for left femoral fracture. She is status post ORIF postop day 3. No acute event overnight. Postop pain is well controlled. Awaiting for rehab placement. Reason For Visit: LEFT COMMINUTED INTERTROCHANTERIC FEMUR FRACTURE Physical Exam Vital Signs: Temp Pulse Resp BP Pulse Ox 98.2 F 82 14 119/64 95 05/30/18 15:00 05/30/18 15:00 05/30/18 15:00 05/30/18 15:00 05/30/18 15:00 Intake & Output 05/29/18 05/30/18 05/31/18 06:59 06:59 06:59 Intake Total 1405 1132 740 Output Total 450 600 Balance 955 1132 140 Weight 180 lb 15.992 oz 179 lb 10.828 oz General appearance: PRESENT: no acute distress, well-developed, well-nourished Head exam: PRESENT: atraumatic Eye exam: PRESENT: conjunctiva pink, EOMI, PERRLA. ABSENT: scleral icterus Ear exam: PRESENT: normal external ear exam Neck exam: ABSENT: carotid bruit, JVD, lymphadenopathy, thyromegaly Respiratory exam: PRESENT: clear to auscultation michael. ABSENT: rales, rhonchi, wheezes Cardiovascular exam: PRESENT: RRR. ABSENT: diastolic murmur, rubs, systolic murmur Pulses: PRESENT: normal dorsalis pedis pul Vascular exam: PRESENT: normal capillary refill GI/Abdominal exam: PRESENT: normal bowel sounds, soft. ABSENT: distended, guarding, mass, organolmegaly, rebound, tenderness Rectal exam: PRESENT: deferred Neurological exam: PRESENT: alert, awake, oriented to person, oriented to place , oriented to time, oriented to situation, CN II-XII grossly intact. ABSENT: motor sensory deficit Skin exam: PRESENT: dry, intact, warm. ABSENT: cyanosis, rash Results Laboratory Results: 05/29/18 04:54 05/29/18 04:54 Impressions: Knee X-Ray 05/26/18 13:56 IMPRESSION: No acute fracture. Chest X-Ray 05/26/18 15:26 IMPRESSION: NO ACUTE RADIOGRAPHIC FINDING IN THE CHEST. Fluoroscopy 05/27/18 00:00 IMPRESSION: IMAGE(S) OBTAINED DURING PROCEDURE. Hip X-Ray 05/27/18 00:00 IMPRESSION: IMAGE(S) OBTAINED DURING PROCEDURE. Assessment & Plan - Diagnosis (1) Fracture, intertrochanteric, left femur Qualifiers: Encounter type: initial encounter Fracture type: closed Is this a current diagnosis for this admission?: Yes Plan: Patient is status post ORIF, POD 2. Continue current pain regimen. Continue weightbearing as tolerated with PT assistance. Patient will be discharged to rehab. On aspirin for DVT prophylaxis per orthopedic service. - Time Time Spent with patient: Less than 15 minutes
[2018-05-30] MEDS: ATORVASTATIN CALCIUM 10 MG TABLET PO SCH (21:05)
[2018-05-31] MEDS: OXYCODONE-ACETAMINOPHEN 5-325 MG TABLET PO PRN ×3 (04:22→20:33)
[2018-05-31] MEDS: MAG HYDROX/AL HYDROX/SIMETH SUSP 30 ML UDCUP PO PRN (10:16)
[2018-05-31] MEDS: ASPIRIN 81 MG TABLET, ENT COATED PO SCH (10:16)
[2018-05-31] MEDS: MEMANTINE HCL 10 MG TABLET PO SCH (10:17)
[2018-05-31] MEDS: METOPROLOL SUCCINATE 50 MG TAB.SR.24H PO SCH (10:17)
--- NOTE | 2018-05-31 11:13 | PDOC TRANSFER SUMMARY ---
General - Admit/Disc Date/PCP Admission Date/Primary Care Provider: 05/26/18 15:57 JONATHAN CARDOZA MD Discharge Date: 05/31/18 - Discharge Diagnosis (1) Fracture, intertrochanteric, left femur Is this a current diagnosis for this admission?: Yes - Additional Information Resuscitation Status: Full Code Discharge Activity: Supervised Activity Prescriptions: Cholecalciferol (Vitamin D3) [Vitamin D3 2000 unit Tablet] 2,000 unit PO DAILY 30 Days #30 tablet Oxycodone HCl/Acetaminophen [Percocet 5-325 mg Tablet] 1 tab PO Q4HP PRN 3 Days #12 tablet PRN Reason: Home Medications: Acetaminophen [Mapap] 500 mg PO Q4HP PRN 05/26/18 Aspirin [Adult Low Dose Aspirin EC] 81 mg PO QAM 05/26/18 Cholecalciferol (Vitamin D3) [Vitamin D3 400 Unit Tablet] 400 unit PO QAM Guaifenesin [Tussin Mucus-Chest Congestion] 10 ml PO Q6HP PRN 05/26/18 Loperamide HCl [Loperamide] 2 mg PO PRN PRN 05/26/18 Magnesium Hydroxide [Milk of Magnesia 30 ml Udcup] 30 ml PO HSP PRN 05/26/18 Memantine HCl [Namenda 10 mg Tablet] 10 mg PO QAM 05/26/18 Metoprolol Succinate [Toprol Xl 50 mg Tab.sr] 50 mg PO QAM 05/26/18 Mintox Susp 30 ml PO PRN PRN 05/26/18 Pravastatin Sodium [Pravachol] 40 mg PO QHS 05/26/18 Cholecalciferol (Vitamin D3) [Vitamin D3 2000 unit Tablet] 2,000 unit PO DAILY 30 Days #30 tablet 05/31/18 Oxycodone HCl/Acetaminophen [Percocet 5-325 mg Tablet] 1 tab PO Q4HP PRN 3 Days #12 tablet 05/31/18 History of Present Illness Admission Date/PCP: 05/26/18 15:57 JONATHAN CARDOZA MD Patient complains of: fall History of Present Illness: DANIELLE VELA is a 87 year old female who is a resident of [facility] suffered a mechanical fall today and landed on her left knee. She was claiming to have pain in her upper thigh. She was brought to the emergency department and was found to have a left femur fracture. She has some degree of cognitive impairment making her somewhat unreliable as a historian, so a lot of the story is obtained from the medical record. Hospital Course Hospital Course: Ms. Cancino is an 87-year-old female with a past medical history of hypertension and hyperlipidemia who came from [facility] after a mechanical fall. Patient sustained a left hip intertrochanteric fracture. She underwent ORIF on 05/27. Patient had physical therapy evaluation. Patient will be discharged to SNF/ rehab for continued physical therapy and supervised advancement of physical activity. Her pain control has been good throughout most of her hospital course. She will follow-up with orthopedics on an outpatient basis. She will also be started on vitamin D replacement to reduce risk of fall. Physical Exam Vital Signs: Temp Pulse Resp BP Pulse Ox 98.1 F 74 16 150/50 H 96 05/31/18 08:01 05/31/18 08:01 05/31/18 08:01 05/31/18 08:01 05/31/18 08:01 Intake & Output 05/30/18 05/31/18 06/01/18 06:59 06:59 06:59 Intake Total 1132 940 Output Total 600 Balance 1132 340 Weight 179 lb 10.828 oz 192 lb 10.944 oz Results Laboratory Results: 05/29/18 04:54 05/29/18 04:54 Impressions: Knee X-Ray 05/26/18 13:56 IMPRESSION: No acute fracture. Chest X-Ray 05/26/18 15:26 IMPRESSION: NO ACUTE RADIOGRAPHIC FINDING IN THE CHEST. Fluoroscopy 05/27/18 00:00 IMPRESSION: IMAGE(S) OBTAINED DURING PROCEDURE. Hip X-Ray 05/27/18 00:00 IMPRESSION: IMAGE(S) OBTAINED DURING PROCEDURE. Qualifiers - * PATIENT BEING DISCHARGED WITH ANY OF THE FOLLOWING DIAGNOSIS: No
[2018-05-31] MEDS ORDERED: TAMSULOSIN HCL 0.4 MG CAP.SR.24H PO ONE (15:15)
--- NOTE | 2018-05-31 17:46 | PDOC PROGRESS REPORT ---
Subjective Progress Note for:: 05/31/18 Subjective:: Patient lying in bed comfortably. Continues to have discomfort with physical therapy. According to nursing staff she has had low urinary output otherwise no complaints. Denies chest pain or shortness of breath. Reason For Visit: LEFT COMMINUTED INTERTROCHANTERIC FEMUR FRACTURE Physical Exam Vital Signs: Temp Pulse Resp BP Pulse Ox 98.5 F 83 16 149/56 H 97 05/31/18 15:47 05/31/18 15:47 05/31/18 15:47 05/31/18 15:47 05/31/18 15:47 Intake & Output 05/30/18 05/31/18 06/01/18 06:59 06:59 06:59 Intake Total 1132 940 Output Total 600 Balance 1132 340 Weight 81.5 kg 87.4 kg Musculoskeletal exam: PRESENT: other - Left hip: Surgical incision well approximated no erythema or drainage. Moderate thigh swelling. Compartments soft and compressible. Intact plantar flexion/dorsiflexion. No calf tenderness. Results Laboratory Results: 05/29/18 04:54 05/29/18 04:54 Impressions: Knee X-Ray 05/26/18 13:56 IMPRESSION: No acute fracture. Chest X-Ray 05/26/18 15:26 IMPRESSION: NO ACUTE RADIOGRAPHIC FINDING IN THE CHEST. Fluoroscopy 05/27/18 00:00 IMPRESSION: IMAGE(S) OBTAINED DURING PROCEDURE. Hip X-Ray 05/27/18 00:00 IMPRESSION: IMAGE(S) OBTAINED DURING PROCEDURE. Assessment & Plan - Diagnosis (1) Fracture, intertrochanteric, left femur Qualifiers: Encounter type: initial encounter Fracture type: closed Is this a current diagnosis for this admission?: Yes Plan: Status post IM nail left intertrochanteric fracture 1. Physical therapy weightbearing as tolerated 2. Pain control 3. 81 mg enteric-coated aspirin DVT prophylaxis 4. Discharge planning to correction facility when bed available
[2018-05-31] MEDS: ATORVASTATIN CALCIUM 10 MG TABLET PO SCH (21:47)
[2018-05-31] MEDS: MORPHINE SULFATE 10 MG/ML INJ IV PRN (21:47)
[2018-06-01] MEDS: OXYCODONE-ACETAMINOPHEN 5-325 MG TABLET PO PRN (03:47)
[2018-06-01] MEDS: MEMANTINE HCL 10 MG TABLET PO SCH (08:16)
[2018-06-01] MEDS: METOPROLOL SUCCINATE 50 MG TAB.SR.24H PO SCH (08:16)
[2018-06-01] MEDS: ASPIRIN 81 MG TABLET, ENT COATED PO SCH (08:16)
[2018-06-01] MEDS ORDERED: NALOXONE HCL INJ/PF 0.4 MG/1 ML SDV IV ONE (09:00)
[2018-06-01] MEDS ORDERED: ACETAMINOPHEN 325 MG TABLET PO PRN (09:30)
--- NOTE | 2018-06-01 09:55 | PDOC PROGRESS REPORT ---
Subjective Subjective:: Patient lying in bed comfortably. Continues to have discomfort with physical therapy but denies pain at rest. According to nursing staff she has had low urinary output otherwise no complaints. Denies chest pain or shortness of breath. Reason For Visit: LEFT COMMINUTED INTERTROCHANTERIC FEMUR FRACTURE Physical Exam Vital Signs: Temp Pulse Resp BP Pulse Ox 97.9 F 79 16 120/52 L 95 05/31/18 23:30 06/01/18 07:45 06/01/18 07:45 06/01/18 07:45 06/01/18 07:45 Intake & Output 05/31/18 06/01/18 06/02/18 06:59 06:59 06:59 Intake Total 940 1379 Output Total 600 900 Balance 340 479 Weight 87.4 kg 87.9 kg Musculoskeletal exam: PRESENT: other - Left lower extremity: Dressing clean/dry/ intact no erythema or drainage. Intact plantar flexion/dorsiflexion. No calf tenderness. No sensory deficits. No evidence of limb length inequality. Results Laboratory Results: 05/29/18 04:54 05/29/18 04:54 Impressions: Knee X-Ray 05/26/18 13:56 IMPRESSION: No acute fracture. Chest X-Ray 05/26/18 15:26 IMPRESSION: NO ACUTE RADIOGRAPHIC FINDING IN THE CHEST. Fluoroscopy 05/27/18 00:00 IMPRESSION: IMAGE(S) OBTAINED DURING PROCEDURE. Hip X-Ray 05/27/18 00:00 IMPRESSION: IMAGE(S) OBTAINED DURING PROCEDURE. Assessment & Plan - Diagnosis (1) Fracture, intertrochanteric, left femur Qualifiers: Encounter type: initial encounter Fracture type: closed Is this a current diagnosis for this admission?: Yes
[2018-06-01] MEDS: NAPROXEN 375 MG TABLET PO PRN ×2 (11:01→21:21)
[2018-06-01] MEDS: ATORVASTATIN CALCIUM 10 MG TABLET PO SCH (21:19)
[2018-06-02] MEDS: NAPROXEN 375 MG TABLET PO PRN (02:59)
[2018-06-02] MEDS: ASPIRIN 81 MG TABLET, ENT COATED PO SCH (08:42)
[2018-06-02] MEDS: METOPROLOL SUCCINATE 50 MG TAB.SR.24H PO SCH (08:42)
[2018-06-02] MEDS: MEMANTINE HCL 10 MG TABLET PO SCH (08:42)
[2018-06-02 10:52] LABS: APPEARANCE,URINE CLEAR; BILIRUBIN,URINE NEGATIVE (NEGATIVE); COLOR,URINE YELLOW; GLUCOSE, URINE NEGATIVE (NEGATIVE); KETONES,URINE NEGATIVE (NEGATIVE); LEUKOCYTE ESTERASE,URINE NEGATIVE (NEGATIVE); NITRITE,URINE NEGATIVE (NEGATIVE); PROTEIN,URINE NEGATIVE (NEGATIVE); URINE SPECIFIC GRAVITY 1.013; UROBILINOGEN,URINE NEGATIVE mg/dL (<2.0)
--- NOTE | 2018-06-02 11:19 | Progress Note ---
Provider Note Provider Note: Patient is medically stable and was discharged the other day. However discharge was held because the patient developed acute urinary retention. Patient's urinary retention is deemed likely to be secondary to opiates she was getting IV and oral narcotics for postop pain. These were stopped and patient was given Narcan to try to reverse opiate effect. Patient also had Flomax. Unfortunately, patient did not have resolution of urinary retention and continued to have significant residual on bladder scanning. Plan is to send patient to rehab with intermittent catheterization until she sees a urologist outpatient for urodynamic testing. 06/02/18: Called and conferred with the urologist at [facility], Dr. Nielson as we do not have on-call urology here. Dr. Nielson recommended the same plan. Apparently, opiate induced urinary retention can persist. Patient will need to be evaluated by urology on an outpatient basis for urodynamic testing. No acute event overnight. Patient's pain is well controlled. Pain medications have been switched to NSAIDs and Tylenol because of acute urinary retention. Patient is tolerating diet well. She denies any acute complaints aside from the persistent acute urinary retention. She is having good bowel movements. Urinalysis today is normal. No UTI. Her acute urinary retention is likely opiate -induced. She will need intermittent straight catheterization every 4-6 hrs until she sees the urologist.
[2018-06-02 12:33] VITALS: BP 145/59
== END 2018-06-02 12:55 | DRG 482 ==
LOC: ER 13:39 → EH 15:57 → 4N 19:29
PROVIDERS: ADMIT Internal Medicine; ATTEND Internal Medicine
PROC: 0QS706Z Reposition Left Upper Femur with Intramedullary Internal Fixation Device, Open Approach (ICD-10-PCS; principal; 2018-05-27 11:45)
DX: S72.145A Nondisplaced intertrochanteric fracture of left femur, initial encounter for closed fracture (principal); W18.30XA Fall on same level, unspecified, initial encounter; E78.5 Hyperlipidemia, unspecified; I10 Essential (primary) hypertension; Z87.891 Personal history of nicotine dependence; R33.0 Drug induced retention of urine; T40.605A Adverse effect of unspecified narcotics, initial encounter; Y92.230 Patient room in hospital as the place of occurrence of the external cause
CPT/HCPCS: 01230; 36415; 71045; 80048; 80053; 81001; 85025; 85027; 93005; 93010; 94799; 99285; C1713; C1769; J0131; J0690; J2270; J2310; J2405; J2704; J3010; J3490; J7030; J7120; S0119